=== PATIENT | female | born 1970 | race Caucasian/White ===

== ENCOUNTER 2019-05-16 10:59 | Emergency (ER) | payer MEDICAID | END 2019-05-16 11:23 | disposition home or self-care (01) | LOC: SCSER 10:59 | DX: R60.0 Localized edema (principal); F31.9 Bipolar disorder, unspecified; F25.9 Schizoaffective disorder, unspecified; F17.210 Nicotine dependence, cigarettes, uncomplicated | CPT/HCPCS: 99283 ==